=== PATIENT | female | born 1975 | race African-American/Black ===

== ENCOUNTER 2023-03-02 12:32 | Emergency (ER) | payer BC ==
[2023-03-02 12:41] VITALS: BMI 43.5
[2023-03-02] MEDS ORDERED: ACETAMINOPHEN 500 MG TABLET (FP) PO ONE (13:39)
[2023-03-02] MEDS ORDERED: ACETAMINOPHEN 325 MG TABLET (FP) ONE (14:20)
[2023-03-02 14:50] LABS: BASO % 0.5 % (0-2.0); EOS % 1.2 % (0-4.5); HEMATOCRIT 32.3 % (32.4-45.2); HEMOGLOBIN 10.8 GM/dL (10.7-15.3); LYMPH % 32.2 % (8-40); MCH 21.9 pg (25.7-33.7); MCHC 33.4 g/dl (32.0-36.0); MEAN CELL VOLUME 65.6 fl (80-96); MONO % 8.5 % (3.8-10.2); NEUT % 57.6 % (42.8-82.8); PLATELET COUNT 232 10^3/uL (134-434); RBC 4.93 M/mm3 (3.60-5.2); RDW 17.5 % (11.6-15.6); WHITE BLOOD COUNT 6.1 K/mm3 (4.0-10.0)
[2023-03-02 14:51] LABS: PH,URINE 6.5 (5.0-8.0); URINE APPEARANCE CLEAR; URINE BILIRUBIN NEGATIVE (NEGATIVE); URINE COLOR YELLOW; URINE GLUCOSE (UA) NEGATIVE (NEGATIVE); URINE KETONE NEGATIVE (NEGATIVE); URINE LEUK ESTERASE NEGATIVE (NEGATIVE); URINE NITRITE NEGATIVE (NEGATIVE); URINE PROTEIN NEGATIVE (NEGATIVE); URINE UROBILINOGEN 0.2 mg/dL (0.2-1.0)
[2023-03-02 14:59] LABS: HCG,QUALITATIVE URINE Negative
[2023-03-02 15:12] LABS: CALCIUM 8.5 mg/dL (8.5-10.1)
[2023-03-02 15:13] LABS: ALBUMIN 3.2 g/dl (3.4-5.0); BLOOD UREA NITROGEN 9.8 mg/dL (7-18)
[2023-03-02 15:16] LABS: CREATININE 0.7 mg/dL (0.55-1.3)
[2023-03-02 15:17] LABS: TOT PROT 6.7 g/dl (6.4-8.2)
[2023-03-02 15:18] LABS: BILIRUBIN,TOTAL 0.2 mg/dL (0.2-1)
[2023-03-02 15:23] LABS: ANISOCYTOSIS 3+; MACROCYTOSIS 0; OVALOCYTE 1+
[2023-03-02 16:42] VITALS: BP 149/94; PULSE 76; RESP 17; TEMP 97.9
== END 2023-03-02 18:12 | disposition home or self-care (01) ==
LOC: JER 12:32
DX: I10 Essential (primary) hypertension (principal); J32.9 Chronic sinusitis, unspecified; R09.81 Nasal congestion; R00.0 Tachycardia, unspecified; R00.2 Palpitations
CPT/HCPCS: 36415; 76856-TC; 80053; 81003; 84443; 84484; 84703; 85025; 86850; 86900; 86901; 87086; 93005; 93010; 99285-25